=== PATIENT | female | born 1945 | race Caucasian/White ===

== ENCOUNTER 2022-01-10 10:18 | Emergency (ER) | payer MEDICARE, SELFPAY ==
--- NOTE | 2022-01-10 10:22 | PC.NURSE ---
THIS NURSE WAS TOLD BY MIA DWYER, PATIENT ACCESS, THAT PT WANTED COVID TEST ONLY WITH NO SYMPTOMS. WHEN PT ADVISED IT WOULD BE UP TO PROVIDER, SHE DECIDED TO LEAVE AND GO TO A COVID TESTING SITE INSTEAD.
== END 2022-01-10 10:22 | disposition left against medical advice (07) ==
LOC: EXPBETH 10:23
PROVIDERS: Emergency Provider Nurse Practitioner; PCP Family Medicine
DX: Z53.21 Procedure and treatment not carried out due to patient leaving prior to being seen by health care provider (principal)
CPT/HCPCS: 99199